=== PATIENT | male | born 1975 | race African-American/Black ===

== ENCOUNTER 2019-03-09 09:06 | Emergency (ER) | payer SELFPAY ==
[2019-03-09] MEDS ORDERED: PREDNISONE 20 MG TABLET PO ONE (09:51)
[2019-03-09] MEDS ORDERED: ALBUTEROL SULFATE 0.083% NEB 2.5 MG/3 ML AMPUL NEB ONE (09:52)
[2019-03-09] MEDS ORDERED: IPRATROPIUM/ALBUTEROL 0.5-2.5 MG/3 ML AMPUL NEB ONE (09:52)
--- NOTE | 2019-03-09 10:28 | ER Document Report ---
Entered by CRISTINA SCOTT SCRIBE 03/09/19 0951 Acting as scribe for:NEIL ABRAMS MD ED Respiratory Problem - General Chief Complaint: Breathing Difficulty Stated Complaint: DIFFICULTY BREATHING Time Seen by Provider: 03/09/19 09:45 Primary Care Provider: CARL DANIEL [NO KAMAR MD] - Follow up as needed Mode of Arrival: Ambulatory Information source: Patient Notes: This 43 year old male patient with asthma presents to the emergency department today with complaints of shortness of breath. Patient uses combivent inhalers as needed. Patient states that he did not get a flu shot this year. Patient states he has been coughing up clear sputum. Patient denies fevers. Later discussion with patient, he reports he uses inhalers every day. He does smoke at least half a pack a day. He has not seen a primary care physician in a long time. He was inquiring about a preventative type drug, and discussing various asthma medication, I believe he was asking about something such as Advair. I explained to him why that would be beneficial given how frequently he has to use his inhaler, that stopping the cigarette smoking is very important, and that the Advair is not cheap, but he spends more on cigarettes than the Advair costs. He also reports that he did take some prednisone about 2 weeks ago. TRAVEL OUTSIDE OF THE [place] IN LAST 30 DAYS: No - Related Data Allergies/Adverse Reactions: No Known Allergies Allergy (Verified 03/09/19 09:35) Home Medications: albuterol inhaler Past Medical History - General Information source: Patient - Social History Smoking Status: Current Every Day Smoker Cigarette use (# per day): Yes - 1ppd Chew tobacco use (# tins/day): No Frequency of alcohol use: None Drug Abuse: None Lives with: Family Family History: Reviewed & Not Pertinent Patient has suicidal ideation: No Patient has homicidal ideation: No Review of Systems - Review of Systems Constitutional: denies: Fever EENT: No symptoms reported Cardiovascular: No symptoms reported Respiratory: See HPI, Cough, Short of breath, Wheezing Gastrointestinal: No symptoms reported Genitourinary: No symptoms reported Male Genitourinary: No symptoms reported Musculoskeletal: No symptoms reported Skin: No symptoms reported Hematologic/Lymphatic: No symptoms reported Neurological/Psychological: No symptoms reported -: Yes All other systems reviewed and negative Physical Exam - Vital signs Vitals: Temp Pulse Resp BP Pulse Ox 98.2 F 99 20 128/78 H 95 03/09/19 09:10 03/09/19 09:10 03/09/19 09:10 03/09/19 09:10 03/09/19 09:10 Interpretation: Normal - General General appearance: Appears well, Alert - HEENT Head: Normocephalic, Atraumatic Eyes: Normal Pupils: PERRL Ears: Normal External canal: Normal Tympanic membrane: Normal Pharynx: Erythema - Respiratory Breath sounds: Wheezing. No: Rhonchi Chest palpation: Normal - Cardiovascular Rhythm: Regular Heart sounds: Normal auscultation Murmur: No - Abdominal Inspection: Normal Distension: No distension Bowel sounds: Normal Tenderness: Nontender Organomegaly: No organomegaly - Back Back: Normal, Nontender - Extremities General upper extremity: Normal inspection. No: Edema General lower extremity: Normal inspection. No: Edema - Neurological Neuro grossly intact: Yes Cognition: Normal Orientation: AAOx4 [place] Coma Scale Eye Opening: Spontaneous [place] Coma Scale Verbal: Oriented [place] Coma Scale Motor: Obeys Commands [place] Coma Scale Total: 15 Speech: Normal - Psychological Associated symptoms: Normal affect, Normal mood - Skin Skin Temperature: Warm Skin Moisture: Dry Skin Color: Normal Course - Re-evaluation Re-evalutation: 03/09/19 11:17 At this time the patient states his breathing is much better and he feels comfortable going home. He does need prescriptions as discussed earlier for Advair discus, and albuterol inhaler, and he will be put on prednisone to start tomorrow. - Vital Signs Vital signs: Temp Pulse Resp BP Pulse Ox 98.2 F 99 20 128/78 H 95 03/09/19 09:10 03/09/19 09:10 03/09/19 09:10 03/09/19 09:10 03/09/19 09:10 Discharge - Discharge Clinical Impression: Acute exacerbation of extrinsic asthma Condition: Stable Disposition: HOME, SELF-CARE Additional Instructions: Bronchitis with Bronchospasm (Wheezing) You have bronchitis with bronchospasm (wheezing). Sometimes people develop wheezing with a chest cold. This occurs either because of an underlying tendency toward asthma or because the virus itself irritates the bronchial tubes. This irritation causes cough, shortness of breath, and wheezing. Emergency treatment of bronchospasm may include adrenaline shots or bronchodilator aerosol. You may feel lightheaded and have a rapid pulse for an hour or two. Rest and get plenty of fluids. At home, we'll treat you with a bronchodilator inhaler. Corticosteroids may be required for some patients. Until you recover, avoid chemical fumes, dusts, pollens, and exercising in very cold or dry air. If you smoke, stop now! Most cases of bronchitis get better without antibiotics. We prescribe antibiotics when we believe bacteria are damaging your airways, or if there's high risk the bronchitis will worsen into pneumonia. Increase your fluid intake. A cool mist humidifier may make your lungs more comfortable. An expectorant (cough medicine that loosens phlegm) can help. Repeated episodes of bronchitis and bronchospasm may result in lung damage -- for example, chronic bronchitis, recurrent pneumonias, or emphysema. If you develop a fever, increased wheezing, chest pain, or severe shortness of breath, you should contact the doctor immediately. Start the prednisone as prescribed tomorrow. Drink plenty of fluids get plenty of rest. Stop smoking. Use the Advair Diskus 1 inhalation every 12 hours. Use the albuterol rescue inhaler as needed. Follow-up with a local primary care provider in the next 1 to 2 weeks to establish a plan to manage your asthma. RETURN TO THE EMERGENCY ROOM IF ANY NEW OR WORSENING SYMPTOMS. Prescriptions: Advair 250/50 1 inh IH Q12 30 Days #1 Prednisone [Deltasone 20 mg Tablet] 20 mg PO TID #15 tablet Albuterol Sulfate [Proair Hfa Inhalation Aerosol 8.5 gm Mdi] 2 puff IH ASDIR PRN #1 mdi PRN Reason: Referrals: LOCALMD,NO [NO LOCAL MD] - Follow up as needed Scribe Attestation: 03/09/19 10:30 I personally performed the services described in the documentation, reviewed and edited the documentation which was dictated to the scribe in my presence, and it accurately records my words and actions. I personally performed the services described in the documentation, reviewed and edited the documentation which was dictated to the scribe in my presence, and it accurately records my words and actions.
[2019-03-09 12:06] VITALS: BP 121/96
== END 2019-03-09 12:04 | disposition home or self-care (01) ==
LOC: ER 09:06
DX: J45.901 Unspecified asthma with (acute) exacerbation (principal); F17.210 Nicotine dependence, cigarettes, uncomplicated
CPT/HCPCS: 94640; 99284; J7512; J7620